=== PATIENT | female | born 1930 | race Caucasian/White ===

== ENCOUNTER → 2016-10-03 | Outpatient (REF) | LOC: ZLAB.WCH 11:38 | DX: Z01.89 Encounter for other specified special examinations (principal) ==

== ENCOUNTER → 2016-10-15 | Outpatient (REF) | LOC: ZLAB.WCH 15:02 | DX: Z01.89 Encounter for other specified special examinations (principal) ==

== ENCOUNTER → 2016-11-14 | Outpatient (REF) | LOC: ZLAB.WCH 10:47 | DX: Z01.89 Encounter for other specified special examinations (principal) ==

== ENCOUNTER → 2016-12-11 | Outpatient (CLI) | payer MEDICARE | LOC: ZCOL.LAB 14:48 | DX: Z01.89 Encounter for other specified special examinations (principal) ==

== ENCOUNTER → 2017-02-01 | Outpatient (REF) | LOC: ZLAB.WCH 08:50 | DX: Z01.89 Encounter for other specified special examinations (principal) ==

== ENCOUNTER → 2017-02-04 | Outpatient (REF) | LOC: ZLAB.WCH 08:38 | DX: Z01.89 Encounter for other specified special examinations (principal) ==

== ENCOUNTER → 2017-02-06 | Outpatient (REF) | LOC: ZLAB.WCH 09:16 | DX: Z01.89 Encounter for other specified special examinations (principal) ==

== ENCOUNTER → 2017-09-02 | Outpatient (REF) ==
[2017-09-02 19:01] LABS: LACTATE DEHYDROGENASE 502 U/L (313-618)
[2017-09-02 19:37] LABS: FERRITIN 15 ng/mL (11-264)
== END ==
LOC: ZLAB.WCH 18:34
PROVIDERS: Nurse Practitioner Family
DX: Z01.89 Encounter for other specified special examinations (principal)

== ENCOUNTER → 2017-10-17 | Outpatient (REF) ==
[2017-10-17 08:54] LABS: IRON,SERUM 21 ug/dL (35-150)
[2017-10-17 09:04] LABS: TOTAL IRON BINDING CAPACITY 294 ug/dL (265-497)
[2017-10-17 09:31] LABS: FERRITIN 19 ng/mL (11-264)
== END ==
LOC: ZLAB.WCH 08:34
DX: Z01.89 Encounter for other specified special examinations (principal)

== ENCOUNTER → 2017-10-31 | Outpatient (REF) | LOC: ZLAB.WCH 08:38 | DX: Z01.89 Encounter for other specified special examinations (principal) ==

== ENCOUNTER → 2018-01-28 | Outpatient (REF) ==
[2018-01-28 18:12] LABS: IRON,SERUM 11 ug/dL (35-150); LACTATE DEHYDROGENASE 368 U/L (313-618)
[2018-01-28 18:21] LABS: TOTAL IRON BINDING CAPACITY 229 ug/dL (265-497)
[2018-01-28 18:48] LABS: FERRITIN 40 ng/mL (11-264)
== END ==
LOC: ZLAB.WCH 17:56
PROVIDERS: Internal Medicine Hematology & Oncology
DX: Z01.89 Encounter for other specified special examinations (principal)

== ENCOUNTER → 2018-03-06 | Outpatient (REF) ==
[2018-03-06 16:13] LABS: IRON,SERUM < 10 ug/dL (35-150)
[2018-03-06 16:22] LABS: TOTAL IRON BINDING CAPACITY 216 ug/dL (265-497)
[2018-03-06 16:49] LABS: FERRITIN 123 ng/mL (11-264)
== END ==
LOC: ZLAB.WCH 15:53
PROVIDERS: Nurse Practitioner Primary Care
DX: Z01.89 Encounter for other specified special examinations (principal)

== ENCOUNTER → 2018-03-25 | Outpatient (REF) | LOC: ZLAB.WCH 15:55 | DX: Z01.89 Encounter for other specified special examinations (principal) ==

== ENCOUNTER → 2018-04-08 | Outpatient (REF) | LOC: ZLAB.WCH 08:44 | DX: Z01.89 Encounter for other specified special examinations (principal) ==

== ENCOUNTER → 2018-04-22 | Outpatient (REF) | LOC: ZLAB.WCH 08:45 | DX: Z01.89 Encounter for other specified special examinations (principal) ==

== ENCOUNTER → 2018-06-06 | Outpatient (REF) | LOC: ZLAB.WCH 09:05 | DX: Z01.89 Encounter for other specified special examinations (principal) ==

== ENCOUNTER → 2018-07-03 | Outpatient (REF) ==
[2018-07-03 16:43] LABS: LACTATE DEHYDROGENASE 353 U/L (313-618)
[2018-07-03 17:19] LABS: FERRITIN 78 ng/mL (11-264)
== END ==
LOC: ZLAB.WCH 16:24
PROVIDERS: Internal Medicine Hematology & Oncology
DX: Z01.89 Encounter for other specified special examinations (principal)

== ENCOUNTER → 2018-08-11 | Outpatient (REF) | LOC: ZLAB.WCH 19:13 | DX: Z01.89 Encounter for other specified special examinations (principal) ==

== ENCOUNTER → 2018-09-20 | Outpatient (REF) | LOC: ZLAB.WCH 11:14 | DX: Z01.89 Encounter for other specified special examinations (principal) ==

== ENCOUNTER → 2018-09-24 | Outpatient (REF) | LOC: ZLAB.WCH 16:12 | DX: Z01.89 Encounter for other specified special examinations (principal) ==

== ENCOUNTER 2018-09-27 10:39 | Emergency (ER) | payer MEDICARE ==
[~2018-09-27] VITALS: Ht 165.1 cm; Wt 63.6 kg
[2018-09-27 11:42] LABS: BASO % 0.7 % (0.0-2.0); EOS % 0.3 % (0-4.0); GRAN # 4.4 (1.4-6.5); LYMPH # 0.8 (1.2-3.4); LYMPH % 12.7 % (20.0-51.0); MEAN CELL VOLUME 94 fl (80.0-100.0); MEAN CORPUSCULAR HEMOGLOBIN 28 pg (27.0-31.0); MEAN CORPUSCULAR HGB CONC 30 g/dl (33.0-37.0); MEAN PLATELET VOLUME 10.7 fl (7.4-10.4); MONO # 0.8 (0.1-0.6); MONO % 13.1 % (1.7-9.3); PLATELET COUNT 203 K/mm3 (130-400); RED BLOOD COUNT 3.52 M/mm3 (4.10-5.30); REDCELL DISTRIBUTION WIDTH-CV 16.9 % (11.5-14.5)
[2018-09-27 11:44] LABS: HEMATOCRIT 33.1 % (37.0-47.0)
[2018-09-27 11:52] LABS: BILIRUBIN,TOTAL 0.2 mg/dL (0.0-1.0); CALCIUM 8.8 mg/dL (8.4-10.2); CREATININE, serum 1.67 mg/dL (0.52-1.25); POTASSIUM 4.6 mmol/L (3.4-5.0); TOTAL PROTEIN 5.6 gm/dL (6.4-8.2)
[2018-09-27 13:50] VITALS: BP 164/76; PULSE 62; TEMP 97
[2018-09-27] MEDS ORDERED: MACROBID 1100 MG/CAP PO (14:47)
[2018-09-27] MEDS ORDERED: FENTANYL 50MCG TOP (14:48)
== END 2018-09-27 13:50 | disposition home or self-care (01) ==
LOC: COL.ER 10:39
PROVIDERS: Family Medicine
DX: N39.0 Urinary tract infection, site not specified (principal); B96.1 Klebsiella pneumoniae [K. pneumoniae] as the cause of diseases classified elsewhere
CPT/HCPCS: J0696; J7030

== ENCOUNTER → 2018-10-06 | Outpatient (REF) ==
[~2018-10-06] MED LIST: FENTANYL 50MCG TOP; MACROBID 1100 MG/CAP PO
== END ==
LOC: ZLAB.WCH 16:03
DX: Z01.89 Encounter for other specified special examinations (principal)

== ENCOUNTER → 2018-10-08 | Outpatient (REF) | LOC: ZLAB.WCH 16:11 | DX: R78.81 Bacteremia (principal) ==

== ENCOUNTER → 2018-10-11 | Outpatient (REF) | LOC: ZLAB.WCH 12:01 | DX: Z01.89 Encounter for other specified special examinations (principal) ==

== ENCOUNTER → 2018-10-24 | Outpatient (REF) ==
[~2018-10-24] MED LIST changes: +ARICEPT10 MG PO; +COLACE 100100 MG/CAP PO; +FENTANYL 50MCG TD; +FERROUSAL325 MG PO; +FOLIC ACID 11 MG/TA1 PO; +IMBRUVICA280 MG PO; +IMODIUM 2MG CAPS2 MG PO; +LASIX 20MG TABL20 MG PO; +MIRALAX PA17 GM/Dose PO; +MYRBETR25MG PO; +PREMARIN VAG42.5 GM VG; +PYRIDIUM 100MG100 MG PO; +RISPERDAL 0.20.25 MG PO; +RT ALBUTER2.5 MG/0.5 IH; +TYLENOL 500MG500 MG PO; +ULTRAM 50MG TAB50 MG PO; +ZOFRAN 4MG T4 MG/TAB PO
== END ==
LOC: ZLAB.WCH 10:38
DX: Z01.89 Encounter for other specified special examinations (principal)

== ENCOUNTER 2018-10-27 13:14 | Outpatient (CLI) | payer MEDICARE ==
[~2018-10-27] VITALS: Ht 165.1 cm; Wt 65.3 kg
[~2018-10-27 13:14] MED LIST changes: -ARICEPT10 MG PO; -COLACE 100100 MG/CAP PO; -FENTANYL 50MCG TD; -FERROUSAL325 MG PO; -FOLIC ACID 11 MG/TA1 PO; -IMBRUVICA280 MG PO; -IMODIUM 2MG CAPS2 MG PO; -LASIX 20MG TABL20 MG PO; -MIRALAX PA17 GM/Dose PO; -MYRBETR25MG PO; -PREMARIN VAG42.5 GM VG; -PYRIDIUM 100MG100 MG PO; -RISPERDAL 0.20.25 MG PO; -RT ALBUTER2.5 MG/0.5 IH; -TYLENOL 500MG500 MG PO; -ULTRAM 50MG TAB50 MG PO; -ZOFRAN 4MG T4 MG/TAB PO
[2018-10-27 13:59] VITALS: BP 178/56; PULSE 65; TEMP 98.2
[2018-10-27] MEDS ORDERED: COLACE 100100 MG/CAP PO (14:02)
[2018-10-27] MEDS ORDERED: ARICEPT10 MG PO (14:03)
[2018-10-27] MEDS ORDERED: FENTANYL 50MCG TD (14:03)
[2018-10-27] MEDS ORDERED: FOLIC ACID 11 MG/TA1 PO (14:04)
[2018-10-27] MEDS ORDERED: FERROUSAL325 MG PO (14:04)
[2018-10-27] MEDS ORDERED: LASIX 20MG TABL20 MG PO (14:05)
[2018-10-27] MEDS ORDERED: MIRALAX PA17 GM/Dose PO (14:05)
[2018-10-27] MEDS ORDERED: MYRBETR25MG PO (14:06)
[2018-10-27] MEDS ORDERED: IMBRUVICA280 MG PO (14:06)
[2018-10-27] MEDS ORDERED: PREMARIN VAG42.5 GM VG (14:07)
[2018-10-27] MEDS ORDERED: RISPERDAL 0.20.25 MG PO (14:07)
[2018-10-27] MEDS ORDERED: TYLENOL 500MG500 MG PO (14:12)
[2018-10-27] MEDS ORDERED: IMODIUM 2MG CAPS2 MG PO (14:13)
[2018-10-27] MEDS ORDERED: ULTRAM 50MG TAB50 MG PO (14:14)
[2018-10-27] MEDS ORDERED: RT ALBUTER2.5 MG/0.5 IH (14:14)
[2018-10-27] MEDS ORDERED: PYRIDIUM 100MG100 MG PO (14:15)
[2018-10-27] MEDS ORDERED: ZOFRAN 4MG T4 MG/TAB PO (14:15)
--- NOTE | 2018-10-27 15:20 | NUR ---
picc insertion completed by Zaynab RED, has arjun wrap dressing over right arm. pt up and dressed, used b/r. Daughter here reviewed discharge care of picc with her and for her to give folder with care instructions to [place]/assisted living, pt discharged via walker with daughter
== END 2018-10-27 15:20 | disposition home or self-care (01) ==
LOC: EUO 13:14
DX: Z45.2 Encounter for adjustment and management of vascular access device (principal); M31.6 Other giant cell arteritis; N39.0 Urinary tract infection, site not specified
CPT/HCPCS: C1751

== ENCOUNTER → 2018-10-28 | Outpatient (REF) ==
[~2018-10-28] MED LIST changes: +ARICEPT10 MG PO; +COLACE 100100 MG/CAP PO; +FENTANYL 50MCG TD; +FERROUSAL325 MG PO; +FOLIC ACID 11 MG/TA1 PO; +IMBRUVICA280 MG PO; +IMODIUM 2MG CAPS2 MG PO; +LASIX 20MG TABL20 MG PO; +MIRALAX PA17 GM/Dose PO; +MYRBETR25MG PO; +PREMARIN VAG42.5 GM VG; +PYRIDIUM 100MG100 MG PO; +RISPERDAL 0.20.25 MG PO; +RT ALBUTER2.5 MG/0.5 IH; +TYLENOL 500MG500 MG PO; +ULTRAM 50MG TAB50 MG PO; +ZOFRAN 4MG T4 MG/TAB PO
== END ==
LOC: ZLAB.WCH 09:26
DX: Z01.89 Encounter for other specified special examinations (principal)

== ENCOUNTER → 2018-11-12 | Outpatient (REF) | LOC: ZLAB.WCH 17:35 | DX: Z01.89 Encounter for other specified special examinations (principal) ==

== ENCOUNTER → 2018-11-22 | Outpatient (REF) | LOC: ZLAB.WCH 12:12 | DX: Z01.89 Encounter for other specified special examinations (principal) ==

== ENCOUNTER → 2018-12-10 | Outpatient (REF) | LOC: ZLAB.WCH 09:37 | DX: Z01.89 Encounter for other specified special examinations (principal) ==

== ENCOUNTER → 2019-01-02 | Outpatient (REF) | LOC: ZLAB.WCH 14:03 | DX: Z01.89 Encounter for other specified special examinations (principal) ==

== ENCOUNTER → 2019-01-04 | Outpatient (REF) | LOC: ZLAB.WCH 09:32 | DX: Z01.89 Encounter for other specified special examinations (principal) ==